=== PATIENT | female | born 2000 ===

== ENCOUNTER → 2021-07-19 | Outpatient (REF) | LOC: M LABSMTC 10:15 | PROVIDERS: ATTEND Pediatrics | DX: Z11.52 Encounter for screening for COVID-19 (principal) ==

== ENCOUNTER 2023-05-25 17:00 | Inpatient (IN) | payer OTHER ==
[2023-05-25] VITALS (9 sets, daily range): BP systolic 109–183; BP diastolic 56–103; TEMP 97.8; O2SAT 99
[~2023-05-25] VITALS: Ht 160 cm; Wt 103.6 kg
[2023-05-25] MEDS ORDERED: FOLI1TAB11 PO (17:34)
[2023-05-25] MEDS ORDERED: TUMS500C PO (17:34)
[2023-05-25] MEDS ORDERED: FERR325T3 PO (17:34)
[2023-05-25] MEDS ORDERED: ACET325C5 PO (17:34)
[2023-05-25] MEDS ORDERED: ASPI81CH33 PO (17:34)
[2023-05-25] MEDS ORDERED: PRENTAB9 PO (17:34)
[2023-05-25] MEDS ORDERED: FOLI400T13 PO (17:34)
[2023-05-25] MEDS ORDERED: HOME MED LIST COMPLETE! XX SCH (17:35)
[2023-05-25] MEDS ORDERED: NIFEdipine 10 MG CAP PO STA (17:49)
[2023-05-25] MEDS ORDERED: NIFEdipine 10 MG CAP As Ordered ONE (17:51)
[2023-05-25] MEDS ORDERED: CARBOPROST TROMETHAMINE 250 MCG/ML AMP IM PRN (18:05)
[2023-05-25] MEDS ORDERED: BICITRA 30ML SOLN UDC PO ONE (18:05)
[2023-05-25] MEDS ORDERED: ceFAZolin SOD 2 GM in IV 1 EA IV ONE (18:05)
[2023-05-25] MEDS ORDERED: OXYTOCIN INJ 10UNITS/ML 1ML VIAL IM PRN (18:05)
[2023-05-25] MEDS ORDERED: OXYTOCIN DRIP 30 UNITS in IV 1 EA IV PRN ×6 (18:05)
[2023-05-25] MEDS ORDERED: LIDOCAINE 1% MDV 20ML VIAL INFIL PRN (18:05)
[2023-05-25] MEDS ORDERED: OXYTOCIN INJ 10UNITS/ML 1ML VIAL IV PRN (18:05)
[2023-05-25] MEDS ORDERED: MAG Sulf (L&D) 4 GM/100 ML 4 GM in IV 1 EA IV ONE (18:05)
[2023-05-25] MEDS ORDERED: METHYLERGONOVINE MALEATE 0.2MG/ML 1ML VIAL IM PRN (18:05)
[2023-05-25] MEDS ORDERED: LABETALOL 100MG/20ML VIAL IV ONE (18:05)
[2023-05-25] MEDS ORDERED: TRANEXAMIC ACID INJection 1,000 MG in NS 100 ML IV PRN (18:05)
[2023-05-25 18:19] LABS: HEMATOCRIT 35.3 % (36.0-47.0); HEMOGLOBIN 12.2 g/dl (12.0-15.5); MEAN CORPUSCULAR HEMOGLOBIN 31.9 pg (27.0-33.0); MEAN CORPUSCULAR HGB CONC 34.6 g/dl (32.0-36.5); MEAN CORPUSCULAR VOLUME 92.4 fl (80.0-96.0); PLATELET COUNT, AUTOMATED 306 10^3/uL (150-450); RED BLOOD COUNT 3.82 10^6/uL (4.00-5.40); WHITE BLOOD COUNT 13.1 10^3/uL (4.0-10.0)
[2023-05-25] MEDS ORDERED: BETAMETHASONE SOLUSPAN 6MG/ML 5ML VIAL IM SCH (18:30)
[2023-05-25] MEDS ORDERED: MORPHINE PRES-FREE INJ 10 MG/10 ML VIAL As Ordered ONE (18:40)
[2023-05-25 18:51] LABS: LDH LACTATE DEHYDROGENASE 233 U/L (120-246)
[2023-05-25 18:52] LABS: ALT/SGPT 13 U/L (7.0-40); AST/SGOT 16 U/L (<34); BILIRUBIN,TOTAL 0.4 MG/DL (0.3-1.2); GLOMERULAR FILTRATION RATE > 60.0 (>60)
[2023-05-25] MEDS ORDERED: ONDANSETRON 4MG 2ML VIAL As Ordered ONE (19:07)
[2023-05-25] MEDS ORDERED: PHENYLephrine 500MCG 5ML (100MCG/ML) SYRINGE As Ordered ONE (19:09)
[2023-05-25] MEDS ORDERED: ePHEDrine SULFATE 25 MG/5 ML(5MG/ML) SYRINGE As Ordered ONE (19:09)
[2023-05-25 19:17] LABS: URIC ACID 4.2 MG/DL (3.1-7.8)
[2023-05-25] MEDS ORDERED: ACETAMINOPHEN 1000MG 100ML IV BAG As Ordered ONE (19:33)
[2023-05-25] MEDS ORDERED: OXYTOCIN 30UNITS IN 0.9% NaCl 500ML IV BAG As Ordered ONE (19:33)
[2023-05-25] MEDS ORDERED: KETOROLAC 60MG 2ML VIAL As Ordered ONE ×2 (19:35→19:36)
[2023-05-25] MEDS ORDERED: OXYTOCIN INJ 10UNITS/ML 1ML VIAL As Ordered ONE (19:39)
[2023-05-25 19:45] LABS: CORD GAS ABE A -5.5; CORD GAS HCO3 A 21.3 MMOL/L; CORD GAS O2 SAT A 64.5 %; CORD GAS PCO2 A 47.3 mmHg; CORD GAS PH A 7.272 UNITS; CORD GAS PO2 A 29.5 mmHg; CORD GAS SBC A 19.3 MMOL/L; CORD GAS TCO2 A 22.8 MMOL/L
[2023-05-25 19:47] LABS: CORD GAS ABE V -3.2; CORD GAS HCO3 V 22.6 MMOL/L; CORD GAS O2 SAT V 61.4 %; CORD GAS PCO2 V 43.1 mmHg; CORD GAS PH V 7.337 UNITS; CORD GAS PO2 V 24.5 mmHg; CORD GAS SBC V 21.1 MMOL/L; CORD GAS TCO2 V 23.9 MMOL/L
[2023-05-25 19:47] LABS: CORD GAS ABE V -2.8; CORD GAS HCO3 V 23.3 MMOL/L; CORD GAS O2 SAT V 29.5 %; CORD GAS PCO2 V 45.5 mmHg; CORD GAS PH V 7.328 UNITS; CORD GAS PO2 V 14.9 mmHg; CORD GAS SBC V 20.5 MMOL/L; CORD GAS TCO2 V 24.7 MMOL/L
[2023-05-25 19:49] LABS: CORD GAS HCO3 A 21.3 MMOL/L; CORD GAS PCO2 A 48.4 mmHg; CORD GAS PH A 7.262 UNITS; CORD GAS PO2 A 26.1 mmHg; CORD GAS SBC A 18.7 MMOL/L; CORD GAS TCO2 A 22.8 MMOL/L
[2023-05-25] MEDS ORDERED: fentaNYL 100 MCG/2 ML INJECTION IV PRN (19:55)
[2023-05-25] MEDS ORDERED: HYDROMORPHONE HCL 0.5 MG/ 0.5 ML SYRINGE IV PRN (19:55)
[2023-05-25] MEDS ORDERED: NALOXONE INJ 0.4MG/1ML VIAL IV PRN ×2 (19:55)
[2023-05-25] MEDS ORDERED: diphenhydrAMINE 50MG/ML VIAL IV PRN ×2 (19:55)
[2023-05-25] MEDS ORDERED: LR 1,000 ML IV SCH (19:55)
[2023-05-25] MEDS ORDERED: oxyCODONE 5MG TAB PO PRN ×2 (19:55→20:00)
[2023-05-25] MEDS ORDERED: PROMETHAZINE 25MG/ML 1ML VIAL IV PRN (19:55)
[2023-05-25] MEDS ORDERED: **NOTE PATIENT COMMENT** MISC XX SCH (19:55)
[2023-05-25] MEDS ORDERED: METOCLOPRAMIDE INJ 10MG/2ML VIAL IV PRN (19:55)
[2023-05-25] MEDS ORDERED: ONDANSETRON 4MG 2ML VIAL IV PRN ×3 (19:55→20:00)
[2023-05-25] MEDS ORDERED: NALBUPHINE HCL 1MG/0.1ML (100MG/10ML) MDV IV PRN ×2 (19:55)
[2023-05-25] MEDS ORDERED: DOCUSATE SODIUM 100MG CAPSULE PO PRN (20:00)
[2023-05-25] MEDS ORDERED: SIMETHICONE 80MG CHEW TAB PO PRN (20:00)
[2023-05-25] MEDS: MAG Sulf (OBGYN) 20GM/500ML 20,000 MG in IV 1 EA IV SCH (20:16)
[2023-05-25] MEDS: DOCUSATE SODIUM 100MG CAPSULE PO SCH (21:42)
[2023-05-26] VITALS (20 sets, daily range): BP systolic 108–131; BP diastolic 55–84; O2SAT 97–100
[2023-05-26] MEDS: KETOROLAC 30 MG/ML 1ML VIAL IV SCH ×3 (02:20→13:28)
[2023-05-26] MEDS: SLF 3 ML SYR IV SCH ×3 (02:21→11:55)
[2023-05-26] MEDS: MAG Sulf (OBGYN) 20GM/500ML 20,000 MG in IV 1 EA IV SCH ×2 (05:07→14:13)
[2023-05-26 05:57] LABS: HEMATOCRIT 26.8 % (36.0-47.0); MEAN CORPUSCULAR HEMOGLOBIN 31.7 pg (27.0-33.0); MEAN CORPUSCULAR HGB CONC 34.7 g/dl (32.0-36.5); MEAN CORPUSCULAR VOLUME 91.5 fl (80.0-96.0); PLATELET COUNT, AUTOMATED 269 10^3/uL (150-450); RED BLOOD COUNT 2.93 10^6/uL (4.00-5.40); WHITE BLOOD COUNT 24.5 10^3/uL (4.0-10.0)
[2023-05-26 06:04] LABS: HEMOGLOBIN 9.3 g/dl (12.0-15.5)
[2023-05-26 07:02] LABS: CREATININE,RANDOM URINE 20.5 MG/DL
[2023-05-26 07:04] LABS: TOTAL PROTEIN,RANDOM URINE < 6.0 MG/DL (0.0-14.0)
[2023-05-26] MEDS: DOCUSATE SODIUM 100MG CAPSULE PO SCH ×2 (07:22→21:55)
[2023-05-26] MEDS: PRENATAL VITAMINS CHEWABLE TABLET PO SCH (07:23)
[2023-05-26] MEDS ORDERED: LR 1,000 ML IV SCH (13:05)
[2023-05-26] MEDS: oxyCODONE 5MG TAB PO PRN (18:30)
[2023-05-26] MEDS: IBUPROFEN 800 MG TAB PO SCH (21:55)
[2023-05-27 02:12] VITALS: BP 108/53; O2SAT 90
[2023-05-27] MEDS: IBUPROFEN 800 MG TAB PO SCH ×3 (06:16→21:36)
[2023-05-27 06:51] LABS: HEMATOCRIT 24.6 % (36.0-47.0); HEMOGLOBIN 8.2 g/dl (12.0-15.5); MEAN CORPUSCULAR HEMOGLOBIN 31.7 pg (27.0-33.0); MEAN CORPUSCULAR HGB CONC 33.3 g/dl (32.0-36.5); PLATELET COUNT, AUTOMATED 314 10^3/uL (150-450); RED BLOOD COUNT 2.59 10^6/uL (4.00-5.40); WHITE BLOOD COUNT 23.8 10^3/uL (4.0-10.0)
[2023-05-27 06:57] VITALS: BP 128/68; O2SAT 98
[2023-05-27] MEDS: PRENATAL VITAMINS CHEWABLE TABLET PO SCH (08:00)
[2023-05-27] MEDS: DOCUSATE SODIUM 100MG CAPSULE PO SCH ×2 (08:00→21:36)
[2023-05-27] MEDS: oxyCODONE 5MG TAB PO PRN ×3 (08:02→21:45)
[2023-05-27] MEDS ORDERED: MEASLES,MUMPS,RUBELLA VACCINE INJ (MMR-II) SC.IMMUN ONE (09:00)
[2023-05-27 09:58] VITALS: BP 132/71; O2SAT 98
[2023-05-27 14:00] VITALS: BP 134/72; O2SAT 98
[2023-05-27 18:00] VITALS: BP 141/71; O2SAT 98
[2023-05-27 22:00] VITALS: BP 127/68; O2SAT 96
[2023-05-28 02:00] VITALS: BP 121/63; O2SAT 97
[2023-05-28 06:00] VITALS: BP 121/69; O2SAT 96
[2023-05-28] MEDS: IBUPROFEN 800 MG TAB PO SCH (06:04)
[2023-05-28] MEDS: oxyCODONE 5MG TAB PO PRN ×2 (06:12→11:15)
[2023-05-28 06:58] LABS: HEMATOCRIT 26.5 % (36.0-47.0); HEMOGLOBIN 8.7 g/dl (12.0-15.5); MEAN CORPUSCULAR HGB CONC 32.8 g/dl (32.0-36.5); MEAN CORPUSCULAR VOLUME 97.4 fl (80.0-96.0); PLATELET COUNT, AUTOMATED 342 10^3/uL (150-450); RED BLOOD COUNT 2.72 10^6/uL (4.00-5.40); WHITE BLOOD COUNT 19.8 10^3/uL (4.0-10.0)
[2023-05-28] MEDS: PRENATAL VITAMINS CHEWABLE TABLET PO SCH (08:41)
[2023-05-28] MEDS: DOCUSATE SODIUM 100MG CAPSULE PO SCH (08:41)
== END 2023-05-28 11:30 | disposition home or self-care (01) | DRG 773 ==
LOC: M LDO 17:00 → M LDI 18:00 → M OBS 05-26 15:30
PROVIDERS: ADMIT Obstetrics & Gynecology; ATTEND Obstetrics & Gynecology
PROC: 10D00Z1 Extraction of Products of Conception, Low, Open Approach (ICD-10-PCS; principal; 2023-05-25 19:00)
DX: O14.14 Severe pre-eclampsia complicating childbirth (principal); Z3A.34 34 weeks gestation of pregnancy; O30.043 Twin pregnancy, dichorionic/diamniotic, third trimester; O99.02 Anemia complicating childbirth; D64.9 Anemia, unspecified; Z79.82 Long term (current) use of aspirin; Z79.899 Other long term (current) drug therapy; O32.1XX2 Maternal care for breech presentation, fetus 2; Z37.2 Twins, both liveborn; O69.82X2 Labor and delivery complicated by other cord entanglement, without compression, fetus 2